=== PATIENT | male | born 1945 | race Caucasian/White ===

== ENCOUNTER 2019-06-24 14:30 | Emergency (ER) | payer MEDICARE, OTHER ==
[~2019-06-24] VITALS: Ht 177.8 cm; Wt 83.0 kg
[~2019-06-24 14:30] MED LIST: ATEN25TA PO; CYCL-1 PO; FLO0.4C PO; GABA-530 PO; GLU850T PO; HYDR-3965 PO; LISI10TA4 PO; LORA1TAB PO; OMEP20CA15 PO; SIMV5TAB2 PO; SUCR1TAB PO; TRAZ-251 PO; VENL75TA4 PO; [UNRECOGNIZED DRUG - CODE] PO
[2019-06-24] MEDS ORDERED: PRED10TA23 PO (16:24)
[2019-06-24 16:30] VITALS: BP 160/77
== END 2019-06-24 16:35 | disposition home or self-care (01) ==
LOC: ER 14:30
DX: R21 Rash and other nonspecific skin eruption (principal); M79.602 Pain in left arm; I10 Essential (primary) hypertension; J44.9 Chronic obstructive pulmonary disease, unspecified; E11.9 Type 2 diabetes mellitus without complications; F17.210 Nicotine dependence, cigarettes, uncomplicated; Z88.0 Allergy status to penicillin; Z88.1 Allergy status to other antibiotic agents; Z79.899 Other long term (current) drug therapy
CPT/HCPCS: 82948; 99283